=== PATIENT | female | born 1985 | race African-American/Black ===

== ENCOUNTER 2020-06-14 15:25 | Emergency (ER) | payer OTHER ==
[2020-06-14] MEDS ORDERED: predniSONE 20 MG TAB ONE (18:34)
== END 2020-06-14 19:10 | disposition home or self-care (01) ==
LOC: CSHERS 15:25
DX: J45.901 Unspecified asthma with (acute) exacerbation (principal); E11.9 Type 2 diabetes mellitus without complications; M06.9 Rheumatoid arthritis, unspecified; Z79.51 Long term (current) use of inhaled steroids; Z79.899 Other long term (current) drug therapy
CPT/HCPCS: 94640; 94760; J7512; J7620

== ENCOUNTER 2020-06-29 08:23 | Emergency (ER) | payer OTHER | END 2020-06-29 09:38 | disposition home or self-care (01) | LOC: CSHERS 08:23 | DX: H92.01 Otalgia, right ear (principal); E11.9 Type 2 diabetes mellitus without complications; J45.909 Unspecified asthma, uncomplicated; Z79.51 Long term (current) use of inhaled steroids; Z79.899 Other long term (current) drug therapy | CPT/HCPCS: 99282 ==

== ENCOUNTER 2020-10-28 03:40 | Emergency (ER) | payer OTHER ==
[2020-10-28 05:34] LABS: SARS-CoV-2 NAA Rapid Test DETECTED (NotDetected)
== END 2020-10-28 06:49 | disposition home or self-care (01) ==
LOC: CSHERS 03:40
DX: U07.1 COVID-19 (principal); E11.9 Type 2 diabetes mellitus without complications; J45.909 Unspecified asthma, uncomplicated; M06.9 Rheumatoid arthritis, unspecified
CPT/HCPCS: 0241U; 71045; 93005; 93010

== ENCOUNTER 2021-07-20 08:38 | Emergency (ER) | payer OTHER | END 2021-07-20 10:41 | disposition home or self-care (01) | LOC: CSHERS 08:38 | DX: J02.9 Acute pharyngitis, unspecified (principal); E11.9 Type 2 diabetes mellitus without complications; M06.9 Rheumatoid arthritis, unspecified; J45.909 Unspecified asthma, uncomplicated | CPT/HCPCS: 87081; 87430; 87804; 99283 ==

== ENCOUNTER 2021-09-22 21:25 | Emergency (ER) | payer OTHER ==
[2021-09-22] MEDS ORDERED: Acetaminophen 500 MG TAB ONE (21:46)
[2021-09-22 22:23] LABS: Bilirubin Neg (Negative); Blood, Urine 25 (Negative); Clarity Slightly Cloudy (Clear); Glucose, Urine (Dipstick) Normal (Negative); Ketone, Urine Negative (Negative); Leukocyte 25 (Negative); Nitrite Negative (Negative); Protein, Urine (Dipstick) Negative (Neg-Trace); Specific Gravity, Urine 1.015 (1.002-1.036); Urobilinogen Normal mg/dL (Less than 2)
[2021-09-22 22:32] LABS: Bacteria/HPF 2+ HPF (None Seen); RBC/HPF 0-3 HPF (0-3)
== END 2021-09-22 23:03 | disposition home or self-care (01) ==
LOC: CSHERS 21:25
DX: O98.512 Other viral diseases complicating pregnancy, second trimester (principal); U07.1 COVID-19; O24.112 Pre-existing type 2 diabetes mellitus, in pregnancy, second trimester; Z3A.16 16 weeks gestation of pregnancy
CPT/HCPCS: 81003; 81015; 87804; 99284; U0003; U0005

== ENCOUNTER 2023-02-14 10:14 | Emergency (ER) | payer OTHER | END 2023-02-14 12:15 | disposition home or self-care (01) | LOC: CSHERS 10:14 | DX: J01.90 Acute sinusitis, unspecified (principal); E11.9 Type 2 diabetes mellitus without complications | CPT/HCPCS: 99283 ==

== ENCOUNTER 2023-05-25 20:50 | Emergency (ER) | payer OTHER ==
[2023-05-25 21:27] LABS: Bilirubin Neg (Negative); Blood, Urine Negative (Negative); Clarity Cloudy (Clear); Glucose, Urine (Dipstick) Normal (Negative); Ketone, Urine 5 mg/dL (Negative); Leukocyte 25 (Negative); Nitrite Negative (Negative); Protein, Urine (Dipstick) 15 mg/dl (Neg-Trace); Urobilinogen Normal mg/dL (Less than 2)
[2023-05-25 21:31] LABS: Pregnancy Test - Urine (BHCG) Negative (Negative); Pregu Control Background? CLEAR/WHITE (CLR/WHITE); Pregu Control Bar Appear? YES (CONTROL BAR)
[2023-05-25 21:41] LABS: #Eosinphils 0.4 10x3/uL (0.0-0.5); #Monocytes 0.4 10x3/uL (0.0-1.1); %Basophils 0.6 % (0.0-2.0); %Eosinophils 5.1 % (0.0-6.0); %Lymphocytes 32.2 % (18.0-47.0); %Monocytes 6.1 % (0.0-10.0); %Neutrophils 55.6 % (40.0-75.0); Hematocrit 30.3 % (34.9-44.5); Hemoglobin 8.9 g/dL (12.0-15.5); Mean Corpuscular HGB CONC 29.4 g/dL (32.0-36.0); Mean Corpuscular Hemoglobin 20.4 pg (27.0-33.0); Mean Corpuscular Volume 69.5 fl (81.6-98.3); Mean Platelet Volume 9.9 fl (7.4-10.4); Platelet Count 383 10x3/uL (150-450); RBC Distribution Width 21.5 % (11.5-14.5); Red Blood Cell (RBC) Count 4.36 10x6/uL (3.90-5.03); White Blood Cell (WBC) Count 7.2 10x3/uL (3.5-10.5)
[2023-05-25 21:53] LABS: ALT (SGPT) 8 U/L (8-55); AST (SGOT) 8 U/L (5-34); Alkaline Phosphatase 52 U/L (40-110); Anion Gap 12 mmol/L (10-20); BUN (Urea Nitrogen) 11 mg/dL (7.0-18.7); Bilirubin, Total 0.2 mg/dL (0.2-1.2); Calc. Creatinine Clearance 0 mL/min (70-130); Calcium 8.6 mg/dL (7.8-10.44); Carbon Dioxide 26 mmol/L (22-29); Chloride 108 mmol/L (98-107); Estimated GFR 106; Globulin 3.1 g/dL (2.4-3.5); Glucose 113 mg/dL (70-105); Protein, Total 7.1 g/dL (6.0-8.3); Sodium 142 mmol/L (136-145)
[2023-05-25 22:03] LABS: Influenza A by NAA Not Detected (NotDetected); Influenza B by NAA Not Detected (NotDetected); SARS-CoV-2 NAA Rapid Test Not Detected (NotDetected)
[2023-05-25 22:05] LABS: Anisocytosis SLIGHT = 6-15 cells (100X) (0-5/hpf); Hypochromia SLIGHT = 6-15 cells (100X) (0-5/hpf); Microcytosis MODERATE=15-30 cells (100X) (0-5/hpf); Platelet Adequacy Comment Appears Adequate
[2023-05-25 22:34] LABS: CAUTI Indications for Culture Fever or rigors; RBC/HPF None Seen HPF (0-3)
[2023-05-25 22:35] LABS: Bacteria/HPF 3+ HPF (None Seen); Mucous/LPF 2+ LPF (<2+); Squamous Epithelial 21-50 HPF (0-3)
[2023-05-25 22:36] LABS: Urine Culture Reflex No No
== END 2023-05-25 23:00 | disposition home or self-care (01) ==
LOC: CSHERS 20:50
DX: N39.0 Urinary tract infection, site not specified (principal); R53.1 Weakness; E11.9 Type 2 diabetes mellitus without complications; J45.909 Unspecified asthma, uncomplicated; Z79.51 Long term (current) use of inhaled steroids; Z79.84 Long term (current) use of oral hypoglycemic drugs
CPT/HCPCS: 36416; 80053; 81001; 81025; 85025; 99284

== ENCOUNTER 2023-09-30 12:56 | Emergency (ER) | payer OTHER, SELFPAY ==
[2023-09-30] MEDS ORDERED: Ketorolac Tromethamine 30 MG (1 mL) VIAL ONE (13:29)
[2023-09-30] MEDS ORDERED: Orphenadrine Citrate 60 MG/2 ML VIAL ONE (13:42)
[2023-09-30 14:04] LABS: Bilirubin Neg (Negative); Blood, Urine 250 (Negative); Clarity Bloody (Clear); Glucose, Urine (Dipstick) Normal (Negative); Ketone, Urine Negative (Negative); Leukocyte 100 (Negative); Nitrite Negative (Negative); Protein, Urine (Dipstick) 100 mg/dl (Neg-Trace); Urobilinogen Normal mg/dL (Less than 2)
[2023-09-30 14:06] LABS: Pregnancy Test - Urine (BHCG) Negative (Negative); Pregu Control Background? CLEAR/WHITE (CLR/WHITE); Pregu Control Bar Appear? YES (CONTROL BAR)
[2023-09-30 14:25] LABS: RBC/HPF Greater than 50 HPF (0-3)
[2023-09-30 14:26] LABS: CAUTI Indications for Culture Pelvic or flank pain
[2023-09-30 14:28] LABS: Bacteria/HPF 1+ HPF (None Seen); Squamous Epithelial 0-3 HPF (0-3); Transitional Epithelial 0-3 HPF (None Seen); Trichomonas/HPF 1+ HPF (None Seen)
[2023-09-30 14:30] LABS: Urine Culture Reflex No No
== END 2023-09-30 14:38 | disposition home or self-care (01) ==
LOC: CSHERS 12:56
DX: M54.41 Lumbago with sciatica, right side (principal)
CPT/HCPCS: 81001; 81025; 96372; 99283; J1885; J2360

== ENCOUNTER 2024-01-15 09:37 | Emergency (ER) | payer MEDICAID, OTHER ==
[2024-01-15] MEDS ORDERED: Lidocaine 1% w/Epinephrine 1:200K 30 ML VIAL ONE (10:34)
[2024-01-15] MEDS ORDERED: Ibuprofen 200 MG TAB ONE (10:37)
[2024-01-15] MEDS ORDERED: Boostrix 0.5 ML (Tdap) VIAL (>/=7 yrs of age) ONE (13:14)
== END 2024-01-15 13:33 | disposition home or self-care (01) ==
LOC: CSHERS 09:37
DX: L02.411 Cutaneous abscess of right axilla (principal); E11.9 Type 2 diabetes mellitus without complications; Z55.6 Problems related to health literacy; Z23 Encounter for immunization
CPT/HCPCS: 10060; 90471; 90715

== ENCOUNTER 2024-04-26 06:11 | Emergency (ER) | payer OTHER ==
[2024-04-26] MEDS ORDERED: Ibuprofen 200 MG TAB ONE (06:35)
[2024-04-26] MEDS ORDERED: Ondansetron ODT 4 MG TAB ONE (07:40)
== END 2024-04-26 07:53 | disposition home or self-care (01) ==
LOC: CSHERS 06:11
DX: J10.1 Influenza due to other identified influenza virus with other respiratory manifestations (principal); E11.9 Type 2 diabetes mellitus without complications
CPT/HCPCS: 87428; 99284; Q0162